=== PATIENT | female | born 1985 | race Caucasian/White ===

== ENCOUNTER 2017-12-29 14:19 | Emergency (ER) | payer SELFPAY ==
[~2017-12-29 14:19] MED LIST: ACAM333T6 PO; ACE3; ACE3 PO; ACE325 PO; AMO500 PO; AMO875; CIP500 PO; CIPR-326 PO; CLI150 PO; CLON0.5T66 PO; ESC10 PO; ESCI20TA38 PO; ESZO1TAB16 PO; ETON1VAG7 VG; FLUT16SP20 NS; HYDR-3078 PO; HYDR-4309 PO; HYDR473S4 PO; IBU800 PO; IBUP-56 PO; KET10 PO; LOR5 PO; MET2 PO; NALT50TA29 PO; NO ROUTINE MEDS; NO RTN MEDS; ONDA4TAB PO; OXYC-865 PO; PEN250 PO; PER PO; PHENA200 PO; PREN-85 PO; PROM-110 PO; SUMA50TA34 PO; TRAZ50 PO; TYLENOL WITH CODIENE; VISCOUS LIDOCAINE; no rtn meds
--- NOTE | 2017-12-29 14:28 | ER Report ---
History and Physical Time Seen By MD: 14:27 Hx. of Stated Complaint: PT REPORTS CLEANING ALL MORNING, NO REPORTS PRESSURE IN LEFT CHEST UNDER BREAST. PT REPORTS PRESSURE IS WORSE WITH DEEP BREATHS. PT REPORTS LOTS OF STRESS THIS WEEK. HPI/ROS CHIEF COMPLAINT: Chest pain HISTORY OF PRESENT ILLNESS: 32-year-old female patient presents to emergency room with complaint of left-sided chest pain. Patient states that she's been having pain since this morning. She states that she spent the morning cleaning, then took a nap getting ready for work. She states when she got up that she was having some left-sided chest pain. States that seems to radiate into left arm. Patient states pain is worse with taking a deep breath. She states there is nothing else strength pain worse. Patient states she does feel very anxious. She did see somebody have a seizure [employer] when she was there to help them. She states that she is used to dealing with people seizures that she has lots of people in her life does have seizures. She states that she has not had any fevers or cough. She has not taken any medications for this. REVIEW OF SYSTEMS: Respiratory: No cough, no dyspnea. Cardiovascular: As noted above Gastrointestinal: No vomiting, no abdominal pain. Musculoskeletal: No back pain. Allergies: Coded Allergies: hydromorphone HCl (Verified Allergy, Mild, HIVES, 12/29/17) Home Meds Reported Medications Escitalopram Oxalate (LEXAPRO) 20 Mg Tablet, 10 MG PO QDAY, TAB 11/01/15 Clonazepam (KLONOPIN) 0.5 Mg Tablet, 0.25 MG PO PRN Y for ANXIETY, #5 TAB 04/18/15 Past Medical/Surgical History Patient has a past medical history of migraines, irregular heartbeat, kidney stones, foot fracture, wrist fracture, clavicle fracture, substance abuse, depression, anxiety. Patient has surgical history of ovarian cyst removal, fibroid removal, clavicle repair. Reviewed Nurses Notes: Yes Hx Smoking: No Smoking Status: Never Smoker Hx Substance Use Disorder: Yes Hx Alcohol Use: No Constitutional Vital Sign - Last 24 Hours 12/29/17 12/29/17 12/29/17 12/29/17 14:19 14:22 14:23 14:24 Temp 98.1 Pulse ??? 100 Resp 20 B/P (MAP) 129/102 129/103 (112) 129/102 (111) Pulse Ox 95 O2 Delivery Room Air 12/29/17 12/29/17 12/29/17 12/29/17 14:30 14:34 14:49 15:00 Pulse 94 82 Resp 25 17 B/P (MAP) 123/96 (105) 123/83 (96) Pulse Ox 98 97 12/29/17 12/29/17 12/29/17 12/29/17 15:04 15:19 15:24 15:30 Pulse 69 84 76 Resp 20 16 B/P (MAP) 122/78 (93) Pulse Ox 97 98 94 12/29/17 12/29/17 12/29/17 15:34 15:44 15:54 Pulse 71 70 72 Resp 9 19 20 Pulse Ox 96 96 98 Physical Exam General Appearance: The patient is alert, has no immediate need for airway protection and no current signs of toxicity. ENT: Tympanic membranes are pearly-amezquita, auditory canals are patent, mucus mucous membranes are moist. Respiratory: Chest is slightly tender along the left sternal border, lungs are clear to auscultation. Cardiac: regular rate and rhythm Gastrointestinal: Abdomen is soft and non tender, no masses, bowel sounds normal. Musculoskeletal: Neck: Neck is supple and non tender. Extremities have full range of motion and are non tender. Skin: No rashes or lesions. DIFFERENTIAL DIAGNOSIS: After history and physical exam differential diagnosis was considered for chest pain including but not limited to myocardial ischemia, pericarditis pulmonary embolus, chest wall pain, pleural inflammation and pulmonary infectious causes. Medical Decision Making Data Points Result Diagram: 12/29/17 1446 12/29/17 1446 Laboratory Hematology Test 12/29/17 14:46 Red Blood Count 5.01 M/uL (4.17-5.56) Mean Corpuscular Volume 87.1 fL (80.0-96.0) Mean Corpuscular Hemoglobin 30.2 pg (26.0-33.0) Mean Corpuscular Hemoglobin Concent 34.6 g/dL (32.0-36.0) Red Cell Distribution Width 14.4 % (11.5-14.5) Mean Platelet Volume 8.8 fL (7.2-11.1) Neutrophils (%) (Auto) 80.3 % (39.4-72.5) Lymphocytes (%) (Auto) 12.9 % (17.6-49.6) Monocytes (%) (Auto) 5.6 % (4.1-12.4) Eosinophils (%) (Auto) 0.5 % (0.4-6.7) Basophils (%) (Auto) 0.7 % (0.3-1.4) Nucleated RBC Relative Count (auto) 0.1 /100WBC Neutrophils # (Auto) 9.1 K/uL (2.0-7.4) Lymphocytes # (Auto) 1.5 K/uL (1.3-3.6) Monocytes # (Auto) 0.6 K/uL (0.3-1.0) Eosinophils # (Auto) 0.1 K/uL (0.0-0.5) Basophils # (Auto) 0.1 K/uL (0.0-0.1) Nucleated RBC Absolute Count (auto) 0.01 K/uL D-Dimer Quantitative (PE/DVT) < 0.27 ug/ml (0-0.50) Sodium Level 138 mmol/L (137-145) Potassium Level 4.0 mmol/L (3.5-5.0) Chloride Level 102 mmol/L (98-107) Carbon Dioxide Level 22 mmol/L (22-31) Blood Urea Nitrogen 8 mg/dl (7-18) Creatinine 0.60 mg/dl (0.52-1.04) Glomerular Filtration Rate Calc > 60.0 Random Glucose 87 mg/dl (75-110) Calcium Level 9.4 mg/dl (8.4-10.2) Total Bilirubin 0.9 mg/dl (0.2-1.3) Aspartate Amino Transf (AST/SGOT) 23 U/L (0-35) Alanine Aminotransferase (ALT/SGPT) 23 U/L (0-56) Alkaline Phosphatase 63 U/L (0-126) Troponin I < 0.012 ng/ml Total Protein 8.1 gm/dl (6.3-8.2) Albumin 4.6 g/dl (3.5-5.0) Human Chorionic Gonadotropin, Qual Negative (NEGATIVE) Chemistry Test 12/29/17 14:46 White Blood Count 11.4 k/uL (4.5-11.0) Red Blood Count 5.01 M/uL (4.17-5.56) Hemoglobin 15.1 g/dL (12.0-16.0) Hematocrit 43.6 % (34.0-47.0) Mean Corpuscular Volume 87.1 fL (80.0-96.0) Mean Corpuscular Hemoglobin 30.2 pg (26.0-33.0) Mean Corpuscular Hemoglobin Concent 34.6 g/dL (32.0-36.0) Red Cell Distribution Width 14.4 % (11.5-14.5) Platelet Count 318 K/uL (150-450) Mean Platelet Volume 8.8 fL (7.2-11.1) Neutrophils (%) (Auto) 80.3 % (39.4-72.5) Lymphocytes (%) (Auto) 12.9 % (17.6-49.6) Monocytes (%) (Auto) 5.6 % (4.1-12.4) Eosinophils (%) (Auto) 0.5 % (0.4-6.7) Basophils (%) (Auto) 0.7 % (0.3-1.4) Nucleated RBC Relative Count (auto) 0.1 /100WBC Neutrophils # (Auto) 9.1 K/uL (2.0-7.4) Lymphocytes # (Auto) 1.5 K/uL (1.3-3.6) Monocytes # (Auto) 0.6 K/uL (0.3-1.0) Eosinophils # (Auto) 0.1 K/uL (0.0-0.5) Basophils # (Auto) 0.1 K/uL (0.0-0.1) Nucleated RBC Absolute Count (auto) 0.01 K/uL D-Dimer Quantitative (PE/DVT) < 0.27 ug/ml (0-0.50) Glomerular Filtration Rate Calc > 60.0 Calcium Level 9.4 mg/dl (8.4-10.2) Total Bilirubin 0.9 mg/dl (0.2-1.3) Aspartate Amino Transf (AST/SGOT) 23 U/L (0-35) Alanine Aminotransferase (ALT/SGPT) 23 U/L (0-56) Alkaline Phosphatase 63 U/L (0-126) Troponin I < 0.012 ng/ml Total Protein 8.1 gm/dl (6.3-8.2) Albumin 4.6 g/dl (3.5-5.0) Human Chorionic Gonadotropin, Qual Negative (NEGATIVE) Coagulation Test 12/29/17 14:46 D-Dimer Quantitative (PE/DVT) < 0.27 ug/ml EKG/Imaging EKG Interpretation 12 lead EKG: Rhythm: Sinus rhythm with sinus arrhythmia, ventricular rate of 76 bpm Rosser: normal QRS: normal ST segments: normal Imaging Examination: CHEST PA AND LAT Comparison: 11/01/2015 and earlier. History: Chest pain. Findings: No consolidation, nodule, or peribronchial inflammation. No pneumothorax, edema, or effusion. Cardiac and hilar contour size is normal. Left clavicle internal fixation. No acute osseous abnormality. IMPRESSION: No evidence of acute cardiopulmonary disease. Report Dictated By: Corby Velasquez MD at 12/29/2017 3:31 PM Report E-Signed By: Corby Velasquez MD at 12/29/2017 3:32 PM ED Course/Re-evaluation ED Course Patient was admitted exam room, history and physical were obtained. Differential diagnoses were considered. On examination lungs are clear, heart is regular, patient does have some mild tenderness to the left side of the sternum and upper chest. A CBC, CMP, chest x-ray, EKG, troponin were done. Lab results were negative, the chest x-ray was negative, EKG showed a sinus rhythm with a sinus arrhythmia. I discussed the findings with the patient. I believe this is more anxiety likely secondary to being dehydrated. Patient had been having a green party with her friends last night she was cleaning up and was busy this morning. I believe that caused her to have a little bit of tachycardia, which she described as feeling like her heart was racing and skipped a beat. I believe that caused her anxiety to go off which brought her into the emergency room. I discussed this with the patient. She feels significantly better at this point time. We will go ahead and discharge her home at this time. She is return to emergency room if condition worsens. Patient verbalized understanding and agreement. Decision to Disposition Date: December 29, 2017 Decision to Disposition Time: 15:55 Depart Departure Latest Vital Signs Vital Signs Date Time Temp Pulse Resp B/P (MAP) Pulse Ox O2 Delivery O2 Flow Rate FiO2 12/29/17 15:54 72 20 98 12/29/17 15:30 122/78 (93) 12/29/17 14:22 98.1 Room Air Impression: Primary Impression: Chest pain Additional Impression: Anxiety Condition: Improved Disposition: HOME OR SELF-CARE Patient Instructions: Chest Pain (ED) Additional Instructions: Increase fluid intake. Get plenty of rest. Make sure that you are continuing with your normal medications. Follow up with your primary care provider in the next week. Return to the ER if condition worsens. Problem Qualifiers Primary Impression: Chest pain Chest pain type: other chest pain Qualified Codes: R07.89 - Other chest pain AGUEDA ESPARZA December 29, 2017 14:28
[2017-12-29] MEDS ORDERED: NS(*) 0.9% 1000 ML BAG 1,000 ML IV ONE (14:35)
[2017-12-29] MEDS ORDERED: ASPIRIN 81 MG CHEW PO ONE (14:35)
--- NOTE | 2017-12-29 15:01 | EKG ---
FACILITY: [facility] PATIENT NAME: MINNA BROWN : [id number] MR: [id number] V: [id number] EXAM DATE: ORDERING PHYSICIAN: AGUEDA ESPARZA TECHNOLOGIST: PREM Salazar Reason : CP Blood Pressure : / mmHG Vent. Rate : 076 BPM Atrial Rate : 076 BPM P-R Int : 136 ms QRS Dur : 076 ms QT Int : 386 ms P-R-T Axes : 068 071 042 degrees QTc Int : 434 ms Normal sinus rhythm with sinus arrhythmia Normal ECG When compared with ECG of 01-NOV-2015 05:58, No significant change was found Confirmed by JOSIE TREVIÑO ([id number]) on 12/29/2017 8:44:15 PM Referred By: BAMBI Confirmed By:JOSIE TREVIÑO
[2017-12-29 15:02] LABS: PLATELET COUNT, AUTOMATED 318 K/uL (150-450)
[2017-12-29 15:30] VITALS: BP 122/78
--- NOTE | 2017-12-29 15:36 | RADIOLOGY IMAGING REPORT ---
FACILITY: [facility] PATIENT NAME: Kamila Byrd : 1985 MR: [id number] V: [id number] EXAM DATE: ORDERING PHYSICIAN: AGUEDA ESPARZA TECHNOLOGIST: Location: [facility] Patient: Kamila Byrd : 1985 Visit/Account:[id number] Date of Sevice: 12/29/2017 Examination: CHEST PA AND LAT Comparison: 11/01/2015 and earlier. History: Chest pain. Findings: No consolidation, nodule, or peribronchial inflammation. No pneumothorax, edema, or effusio n. Cardiac and hilar contour size is normal. Left clavicle internal fixation. No acute osseous abnorm ality. IMPRESSION: No evidence of acute cardiopulmonary disease. Report Dictated By: Corby Velasquez MD at 12/29/2017 3:31 PM Report E-Signed By: Corby Velasquez MD at 12/29/2017 3:32 PM WSN:[id number]
== END 2017-12-29 15:59 | disposition home or self-care (01) ==
LOC: ER 14:20
DX: R07.89 Other chest pain (principal); F41.9 Anxiety disorder, unspecified
CPT/HCPCS: 71046; 82040; 82247; 82310; 82374; 82435; 82565; 82947; 84075; 84132; 84155; 84295; 84450; 84460; 84484; 84520; 84703; 85025; 85379; 93005; 99284